=== PATIENT | female | born 1935 | race Caucasian/White ===

== ENCOUNTER 2016-10-12 09:45 | Day surgery (SDC) | payer MEDICARE, OTHER ==
[~2016-10-12] VITALS: Ht 154.9 cm; Wt 81.7 kg
[~2016-10-12 09:45] MED LIST: 0.9% Sodium Chloride 1,000 ML IV SCH; ASPI-973 PO; CHOL5000 PO; LEVO100T6 PO; LOSA100T29 PO; MULT1CAP33 PO; Sodium Chloride LOK Flush 10 mL Syringe IV PRN; THYR15TA PO; fentaNYL-PF 50 mCg/mL 2 mL Inj IVPUSH PRN
[2016-10-12 10:08] VITALS: BP 133/69; PULSE 83; RESP 16; O2SAT 95
[2016-10-12 11:05] VITALS: BP 112/62; PULSE 67; RESP 16; O2SAT 100
[2016-10-12 11:15] VITALS: BP 116/57; PULSE 63; RESP 16; O2SAT 95
[2016-10-12 11:25] VITALS: BP 121/62; PULSE 65; RESP 16; O2SAT 97
--- NOTE | 2016-10-12 22:30 | ENDO ---
[address] [address] ENDOSCOPY PROCEDURE PATIENT: CORAZON DIAZ : 1935 MR#: [id number] ADMIT: 10/12/2016 JOB ID: [id number] DATE OF PROCEDURE: 10/12/2016 PRIMARY PROVIDER: ESTEFANI Aponte. PROCEDURE: Colonoscopy with hot snare polypectomy. INDICATIONS: A 81-year-old female with a personal history of colon polyps returning for surveillance. EQUIPMENT: [email or web address]. SEDATION: 1. Versed 6 mg. 2. Fentanyl 100 mcg. COMPLICATIONS: None identified. BOWEL PREPARATION: Fair, adequate exam. PROCEDURE INFORMATION: After the risks and benefits were explained, written and verbal informed consent was obtained. The patient was brought into the endoscopy suite and placed into the left lateral decubitus position. Sedation was achieved using the above-stated medications with the addition of oxygen via nasal cannula. A digital rectal examination was accomplished and did not elicit any obvious anorectal pathology apart from some mild internal hemorrhoids. The scope was introduced into the rectum and advanced under direct visualization to the level of the cecum, as identified by the appendiceal orifice and ileocecal valve. The scope was slowly withdrawn to carefully examine the mucosa for any defects or lesions. Multiple direct views were made through the dentate line for exclusion of pathology. The colon was decompressed. The scope was removed from the patient who tolerated the procedure well. FINDINGS: The patient had moderate diverticulosis through the left colon. Tortuous rectosigmoid region. Redundant lengthy colon. It was very challenging to gain the last couple of centimeters into the cecum proper. We spent quite a bit of time manipulating the patient's abdomen with pressure and changing positions, and were able to get near complete views from the vantage point of the ileocecal valve down into cecum and did not see pathology. There was a perhaps 6-7 mm sessile polyp in the transverse colon removed with hot snare. No other pathology was appreciated throughout. ENDOSCOPIC DIAGNOSES: 1. Diverticulosis. 2. Hemorrhoids. 3. Colon polyp. RECOMMENDATIONS: 1. Await histopathology. 2. Consider repeat colonoscopy in five years' time.
--- NOTE | 2016-10-13 13:38 | PATH ---
SURGICAL PATHOLOGY Attending Physician:Sophia Arriaga CASE STATUS: Signed Out PATIENT NAME: CORAZON DIAZ PID: [id number] : 1935 DATE COLLECTED:10/12/2016 00:00 SPECIMEN: Colon, Biopsy CLINICAL HISTORY: 1). 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 10/13/2016 DAC MICRO DESCRIPTION: See diagnosis. ICD-9 CODES: CPT CODES: 1: 91898 Electronically Signed Out Manjit Saavedra MD [facility] [address] [place], [place] [address] Technical component performed at [facility], [address] [place] [address] Ave[address], [place], [address]
== END 2016-10-12 23:59 | disposition home or self-care (01) ==
LOC: END 09:45
PROVIDERS: ATTEND Internal Medicine Gastroenterology
DX: Z12.11 Encounter for screening for malignant neoplasm of colon (principal); D12.3 Benign neoplasm of transverse colon; K57.30 Diverticulosis of large intestine without perforation or abscess without bleeding; K64.8 Other hemorrhoids; Z86.010 Personal history of colon polyps; Z79.82 Long term (current) use of aspirin; Z79.899 Other long term (current) drug therapy